=== PATIENT | female | born 1940 | race African-American/Black ===

== ENCOUNTER → 2017-05-08 | Outpatient (CLI) | payer OTHER ==
[~2017-05-08] MED LIST: ACIPHEX20 MG PO; ANASTROZOLE1 MG PO; ARIMIDEX1 MG PO; ASPIR 8181 M1 PO; CALCIO DEL MAR500 MG PO; COD LIVER OIL1 EACH PO; HYDROCHLOROTHIA25 MG PO; LIPITOR10 MG PO; LIPITOR5 MG PO; METOPROLOL SUCC50 MG PO; METOPROLOL TART50 MG PO; klor con
== END | disposition home or self-care (01) ==
LOC: CDC 10:56
DX: I44.0 Atrioventricular block, first degree (principal); R94.31 Abnormal electrocardiogram [ECG] [EKG]
CPT/HCPCS: 93000

== ENCOUNTER 2017-05-22 06:13 | Day surgery (SDC) | payer OTHER ==
[~2017-05-22] VITALS: Ht 160 cm; Wt 56.7 kg
[~2017-05-22 06:13] MED LIST changes: +ASPIRIN81 M2 PO; +COZAAR25 MG PO; +LOPRESSOR50 MG PO; +NORVASC10 MG PO; +OS-CAL 500+D31 EACH PO; +TYLENOL EXTRA500 MG PO; +VITRON-C TABLE1 EACH PO
[2017-05-22 07:18] VITALS: BP 131/59
[2017-05-22 07:18] LABS: HEMATOCRIT 34.8 % (36.0-46.0); MCHC 33.3 G/DL (30.0-36.0); MCV 89.9 FL (83-99); PLATELET COUNT 225 K/uL (156-360); RBC DIS.WIDTH-CV 13.5 % (11.8-14.6); RBC DIS.WIDTH-SD 44.3 % (39-53); RED BLOOD COUNT 3.87 M/uL (3.80-5.20); WHITE BLOOD COUNT 6.6 K/uL (4.1-10.2)
[2017-05-22 07:39] LABS: ANION GAP 9 MEQ/L (2-14); CHLORIDE 102 MEQ/L (99-109); SAMPLE HEMOLYSIS CHECK 0; SAMPLE ICTERIC CHECK 0; SAMPLE LIPEMIA CHECK 0; SODIUM 137 MEQ/L (136-147)
[2017-05-22 07:45] LABS: GFR ESTIMATE (CALCULATED) 22 mL/min/; GLUCOSE 88 mg/dL (70-99); UREA NITROGEN (BUN) 46 mg/dL (9-23)
[2017-05-22 12:00] VITALS: BP 124/48
[2017-05-22 13:05] VITALS: BP 103/50
== END 2017-05-22 13:32 | disposition home or self-care (01) ==
LOC: SDC 06:13
PROVIDERS: Surgery
PROC: 031C0ZF Bypass Left Radial Artery to Lower Arm Vein, Open Approach (ICD-10-PCS; principal; 2017-05-22)
DX: I12.0 Hypertensive chronic kidney disease with stage 5 chronic kidney disease or end stage renal disease (principal); N18.6 End stage renal disease; Z99.2 Dependence on renal dialysis; E78.5 Hyperlipidemia, unspecified; I47.2 Ventricular tachycardia; Z79.82 Long term (current) use of aspirin
CPT/HCPCS: 80048; 85027; 93005; J0690; J1644; J2405; J2720; J3010